=== PATIENT | male | born 1945 | race Caucasian/White ===

== ENCOUNTER 2024-06-16 06:47 | Inpatient (IN) | payer OTHER, SELFPAY ==
[2024-06-13 10:27] VITALS: BMI 23.0
[2024-06-13 10:49] LABS: % Basophils 0.2 % (0-2); % Eosinophils 0.2 % (0-6); % Immature Granulocytes 0.9 % (0-0.5); % Monocytes 7.3 % (1.7-9.3); % Neutrophils 77.4 % (42.2-75.2); Absolute Immature Granulocytes 0.1 10^3/uL (0-0.05); Absolute Lymphocytes 1.2 10^3/uL (1.2-3.4); Absolute Monocytes 0.6 10^3/uL (0.1-0.6); Absolute Neutrophils 6.7 10^3/uL (1.4-6.5); Hematocrit 53.7 % (39.0-52.0); Hemoglobin 18.3 g/dL (13.0-18.0); Mean Corp Hgb Conc. 34.1 g/dL (33.0-37.0); Mean Corpuscular Hgb 33.2 pg (27.0-31.0); Mean Corpuscular Volume 97.5 fL (80.0-94.0); Mean Platelet Volume 9.1 fL (7.4-10.4); Nucleated Red Blood Cells % 0 % (-); Platelet Count 218 10^3/uL (130-400); Red Blood Cell Count 5.51 10^6/uL (4.70-6.10); Red Cell Dist. Width 13.7 % (11.5-14.5); White Blood Cell Count 8.6 10^3/uL (4.8-10.8)
[2024-06-13 10:54] LABS: INR 0.93; PT 12.8 Sec (11.4-14.6)
[2024-06-13 10:55] LABS: APTT 27.3 Sec (23.4-35.0)
[2024-06-13 11:03] LABS: Blood Urea Nitrogen 41 mg/dl (9-20); Calcium 10.2 mg/dl (8.4-10.2); Carbon Dioxide 28 mmol/L (22-30); Chloride 101 mmol/L (98-107); Estimated Creatinine Clearance 45 ml/min; Glucose 114 mg/dl (70-99); Potassium 4.4 mmol/L (3.5-5.1); Sodium 136 mmol/L (135-145); eGFR 56.23
[2024-06-16] VITALS (17 sets, daily range): BP systolic 117–160; BP diastolic 60–79; PULSE 72; BMI 23.6
[2024-06-16] MEDS: PERIDEX 0.12% ORAL RINSE 15 ML PO (07:18)
[2024-06-16] MEDS: BACTROBAN NASAL 1 GRAM NASAL (07:18)
[2024-06-16] MEDS: NSS 500 IV (07:19)
--- NOTE | 2024-06-16 08:38 | W.SUR.PREOP ---
Pre-Operative Surgical Note
-
I have examined this patient prior to the performance of the scheduled procedure.
The patient's condition is unchanged from the time of the current History and
Physical and the patient is able to undergo the scheduled procedure.
[2024-06-16 09:43] LABS: ACT-LR - POC 295 Seconds (116-155)
[2024-06-16 10:38] LABS: ACT-LR - POC 218 Seconds (116-155)
--- NOTE | 2024-06-16 11:15 | W.IMMPOSTOP ---
Surgical Immed Post Op Note
-
Primary Surgeon: Ena
Assisting Surgeon: Tonia
Pre-op Diagnosis: L carotid stenosis
Post-op Diagnosis: L carotid stenosis
Procedure Performed: L CEA
Anesthesia Type: General
Specimen / Cultures: None
Estimated Blood Loss: 5 cc
Complications: None
Operative Findings: Plaque found at carotid bifurcation. L CEA performed.
[2024-06-16] MEDS: CARDENE 25 IV (11:45)
[2024-06-16 12:07] LABS: Hematocrit 51.2 % (39.0-52.0); Hemoglobin 17.3 g/dL (13.0-18.0); Mean Corp Hgb Conc. 33.8 g/dL (33.0-37.0); Mean Corpuscular Hgb 33.5 pg (27.0-31.0); Mean Platelet Volume 8.9 fL (7.4-10.4); Platelet Count 193 10^3/uL (130-400); Red Blood Cell Count 5.17 10^6/uL (4.70-6.10); Red Cell Dist. Width 13.8 % (11.5-14.5); White Blood Cell Count 13.3 10^3/uL (4.8-10.8)
[2024-06-16] MEDS: SUBLIMAZE 50 MCG IV ×2 (12:10→12:24)
--- NOTE | 2024-06-16 12:15 | OR.RPT ---
Operative Report
Operative Report
Date of Operation: 06/16/2024
Pre Op Diagnosis: Heavily calcified high-grade stenosis left internal carotid artery
Post Op Diagnosis: Heavily calcified high-grade stenosis left internal carotid artery
Procedure: LEFT carotid endarterectomy with patch angioplasty using bovine pericardium
Surgeon: Daniel Sutherland III, MD
Tire Retreader: Ab Randall MD PGY1
Anesthesia: General
Complications: None
History and Indications for Procedure: 79-year-old male with heavily calcified high-grade stenosis of the left internal carotid artery, asymptomatic
Procedure in Detail: Khang Proctor was correctly identified and placed supine on the operating table. After adequate induction of anesthesia the left neck was positioned, prepped and draped in the usual sterile fashion. Preoperative antibiotics were
administered. A timeout procedure was performed with the nursing and anesthesia staff confirming the patients identity as well as the nature and laterality of the procedure.
The carotid bifurcation was marked with ultrasound at the beginning of the case. The incision was planned accordingly. An incision was made along the anterior border of the left sternocleidomastoid muscle. Electrocautery was used to divide the
subcutaneous tissue and platysma. The carotid sheath was entered with sharp dissection. The internal jugular vein was retracted laterally. The vagus nerve was identified and protected throughout the case. The common carotid artery was identified at
the base of this incision and carefully encircled with a vessel loop. The patient was systemically heparinized. The dissection was continued distally towards the carotid bifurcation. The facial vein was skeletonized, ligated and divided between ties
and clips. The proximal external carotid artery was encircled with a vessel loop. The distal internal carotid artery was encircled with a vessel loop at a soft spot on the artery beyond the plaque. The hypoglossal nerve was identified and protected.
The internal vessel loop was secured followed by the common and external. An arteriotomy was made on the distal common carotid artery with an 11-blade. This was extended proximally and distally with Hayes scissors. The arteriotomy was extended
distally through the plaque to an area of normal appearing internal carotid artery. The distal vessel loop was replaced with a short tip hockey-stick type vascular clamp. An endarterectomy was performed with a [place] elevator in the standard
fashion. The proximal extent of the plaque was transected with scissors. The distal end of the plaque in the internal carotid artery feathered very nicely with no distal intimal flap identified. The plaque extending into the external carotid artery
was everted. Once the plaque was fully removed the endarterectomy plane was irrigated with heparinized saline and any loose fronds of tissue were removed. A pre-cut piece of bovine pericardium was sewn in place using a running 6-0 Prolene suture.
Prior to the completion of the patch the common carotid was allowed to forward bleed and the external was allowed to back bleed. The area under the patch was irrigated with heparinized saline to remove any potential thrombus or debris. The
anastomosis was completed.
The external vessel loop was released first, followed by the common and then the internal. There was an excellent pulse in the distal internal carotid artery. An excellent quality Doppler signal in the distal internal carotid artery was also
confirmed. The patch suture line was closely inspected for hemostasis and was achieved. Protamine was administered. Hemostasis was achieved in the wound bed. The wound was irrigated with saline solution.
The wound was then closed in layers. Sterile dressings were applied. The patient awoke from anesthesia with no immediate neuro deficits and was taken to the PACU in stable condition.
Attestation: I was present and responsible for the entire procedure
Signed:
Daniel Sutherland III, MD
[facility]
[phone] (cell)
[2024-06-16 12:25] LABS: Blood Urea Nitrogen 26 mg/dl (9-20); Calcium 8.7 mg/dl (8.4-10.2); Carbon Dioxide 27 mmol/L (22-30); Chloride 103 mmol/L (98-107); Estimated Creatinine Clearance 74 ml/min; Glucose 147 mg/dl (70-99); Potassium 4.6 mmol/L (3.5-5.1); Sodium 134 mmol/L (135-145); eGFR > 60.00
[2024-06-16] MEDS: NSS 1000 IV ×2 (13:01→21:53)
--- NOTE | 2024-06-16 13:25 | PTCARENOTE ---
Received pt from PACU with RNx2, telemetry, oxtgen 2 liters nasal cannula, with right FA#18g protective catheter with ivf as ordered, and Cardene @5mg/hr. No neuro deficits. He is aware that he is to call for a headache, visual changes, difficulty
speaking or inability to move any of his extremities. He verbalized his understanding. He was provided a Stroke packet and assigned videos. Right radial arterial line transduced, calibrated and monitored with all ports patent and secured. Correlated
to cuff. Lungs CTA. Pulse ox 99%. Oxygen removed. +BSx4. Reports last BM yesterday. 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 Red in appearance. Not itchy. Voided 580. Removed underwear on arrival. Hearing aid placed in both ears by patient. Daughter at the bedside,
and both were oriented to the unit and the plan of care. Safe environment maintained.
--- NOTE | 2024-06-16 13:28 | PTCARENOTE ---
PACU left without co-signing handoff
[2024-06-16 13:42] LABS: Troponin I < 0.012 ng/ml
--- NOTE | 2024-06-16 13:46 | SUR.PHASEI ---
patient in pacu post left carotid , awakens to name, initially confused as to name of hospital and year - with subsequent checks - knew both. c/o neck burning pain - medicated with fentanyl - little change in pain #; but patient does sleep. michele
and cuff pressures consistent. Cardene held at 25mcg. At 1228 - 9 beats of ventricular rhythm - slow rate at first and then last 4 beats 120/min. asymptomatic. Dr Orantes and Mac Rodriguez TRAVELER CHANGER notified. Per Mesfin Rodriguez - EKG obtained and them Mag and
troponin added to labs - sent. initial BMP and CBC results were back and Mac Rodriguez and Dr Orantes advised. discharge to [facility]U and hand off at bedside.
--- NOTE | 2024-06-16 14:08 | CON.INTV ---
Consultation
Consultation Request
Date/Time Consultation Requested: 06/16
Date/Time Consultation Performed: 06/16
Reason for Consultation: Critical care
Medical History
-
History of Present Illness:
History obtained from the patient, reviewing outpatient and inpatient medical records. Pleasant 79-year-old male with history of left carotid stenosis, nephrolithiasis, history of atrial fibrillation. Patient underwent left carotid endarterectomy
06/16/2024 without complication. We are asked to help from critical care standpoint
Of note, preadmission, patient denies any shortness of breath, nausea, abdominal pain, diarrhea, falls, fevers. Patient did have an episode of decreased senior it assistant strength in the left hand, along with tingling which lasted a minute. CT imaging at [facility]
Nimisha's at that time showed high-grade calcified stenosis of the left carotid, 60%, started on aspirin at that time
.
PMH: History of nephrolithiasis. History suggests sciatica, history of atrial fibrillation
Past Medical History
Past Medical History: None (See above)
Past Surgical History: None (See above)
Social History
Tobacco: Non-smoker
Alcohol: None
Drug: None
Personal:
Living: With Family (Lives with daughter)
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
Family History
Family History: Other (Negative for blood clots, lung disease)
Allergies / Home Medications
Allergies
Allergy/AdvReac Type Severity Reaction Status Date / Time
No Known Allergies Allergy Unverified 06/12/24 12:06
Home Medications
�Medication �Instructions �Recorded �Confirmed �Last Taken �Type
L-Methylfolate Formula 1 mg PO DAILY 06/12/24 06/16/24 06/15/24 06:00 History
[place] 3 2 cap PO DAILY 06/12/24 06/16/24 06/15/24 06:00 History
Vitamin D3 500 unit PO DAILY 06/12/24 06/16/24 06/15/24 06:00 History
aspirin 81 mg chewable tablet 81 mg PO DAILY 06/12/24 06/16/24 06/15/24 History
0600
donepezil 10 mg tablet 10 mg PO DAILY 06/12/24 06/16/24 06/15/24 06:00 History
tamsulosin 0.4 mg capsule 0.4 mg PO DAILY 06/12/24 06/16/24 06/15/24 06:00 History
Review of Systems
-
All other systems: Negative unless noted
Vitals / Labs / Diagnostic Testing
Vital Signs
Temp Pulse Resp BP Pulse Ox
98 F 70 16 128/60 98
06/16/24 13:00 06/16/24 13:00 06/16/24 13:00 06/16/24 13:00 06/16/24 13:15
Lab Data
06/16/24 11:58
06/16/24 11:58
Diagnostic Testing:
Physical Exam
-
HEENT: Normocephalic, Anicteric and Other (Left carotid incision intact)
Cardiovascular: S1/S2, Irregular Rhythm, Rub (n) and Peripheral Edema (n)
Respiratory: Wheeze (n), Rales (n), Rhonchi (n) and Non-Labored Respirations
GI: Soft, Non Distended and Non Tender
Neurology: Awake, Alert and No Motor Deficits (Cranial nerves grossly intact, moves all extremities)
Skin: Good Color and Other (Left carotid incision intact)
General: Comfortable
Assessment
-
79-year-old male with history of atrial fibrillation, nephrolithiasis, presents with transient left senior it assistant weakness along with tingling, had imaging in [facility] which identified left carotid disease. Patient is status post left carotid
endarterectomy 06/16/2024 for high-grade calcified lesion.
S/p LCEA 06/16/2024
Transient left senior it assistant weakness, tingling
Preadmission
Imaging in [facility] confirmed high-grade calcified left carotid stenosis
History of nephrolithiasis
Chronic sciatica
BPH
History of hernia repair
Pulmonary nodule per chest x-ray
History of pancreatic cyst, pending follow-up abdominal imaging
Questionable history of atrial fibrillation, transient
Plan/recommendations
At this time, patient appears to be comfortable
He is without complaints
Left carotid incision intact, hemodynamic stable
Postoperative report reviewed
Cranial nerves intact, neurological exam nonfocal
EKG normal sinus rhythm
CXR 06/13/2024, no active disease although there is a nodular density in the right midlung zone
Moving forward
Continue with IV fluids
Follow blood pressures, treat to maintain parameters
Presently, patient is without pain, denies headaches, nausea
Outpatient records suggest history of atrial fibrillation, apparently patient was told this about 2 years ago, but with follow-up was told 'nothing to worry about', resolved
May benefit from cardiology follow-up in the future
Aspirin therapy started few weeks ago after presenting with left hand senior it assistant weakness, tingling, resolved
At some point, would recommend follow-up chest x-ray and/or CT imaging to rule out pulmonary nodule on the right
Patient lifelong non-smoker
Awaiting abdominal imaging in the next few weeks for pancreatic cyst
Recommended to consider CT imaging at that time. Daughter aware of recommendations
Reviewed with patient, critical care nursing, daughter at bedside
We will follow
TCCT 31 min
[2024-06-16] MEDS: TYLENOL 650 MG PO (14:11)
[2024-06-16 14:26] LABS: APTT 28.4 Sec (23.4-35.0); PT 13.5 Sec (11.4-14.6)
[2024-06-16 15:36] LABS: Phosphorus 2.7 mg/dl (2.5-4.5)
[2024-06-16] MEDS: CARDENE 200 IV (17:38)
--- NOTE | 2024-06-16 20:00 | PTCARENOTE ---
Received pt via handoff.. No neuro deficits. He is aware that he is to call for a headache, visual changes, difficulty speaking or inability to move any of his extremities. Right radial arterial line transduced, calibrated and monitored with all
ports patent and secured. Correlated to cuff. 95% on room air. Oxygen removed. Hypoactive bowel sounds in all 4Q. 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 Red in appearance. Not itchy. Voided 300. Hearing aid placed in both ears by patient. Call mcrae at bedside.
[2024-06-16] MEDS: HEPARIN 5000 UNITS SC (21:16)
[2024-06-17] VITALS (8 sets, daily range): BP systolic 123–138; BP diastolic 57–73; BMI 23.2
--- NOTE | 2024-06-17 | PTCARENOTE ---
All systems reassessed. Neuro checks remain the same. Ice pack refilled. Call mcrae at bedside.
[2024-06-17] MEDS: CARDENE 200 IV (00:38)
--- NOTE | 2024-06-17 04:00 | PTCARENOTE ---
All systems reassessed, labs drawn and hygiene performed..
[2024-06-17 04:08] LABS: Hematocrit 47.7 % (39.0-52.0); Hemoglobin 16.2 g/dL (13.0-18.0); Mean Corpuscular Hgb 32.8 pg (27.0-31.0); Mean Corpuscular Volume 96.6 fL (80.0-94.0); Mean Platelet Volume 9.3 fL (7.4-10.4); Platelet Count 179 10^3/uL (130-400); Red Blood Cell Count 4.94 10^6/uL (4.70-6.10); Red Cell Dist. Width 13.7 % (11.5-14.5); White Blood Cell Count 16.6 10^3/uL (4.8-10.8)
[2024-06-17 04:19] LABS: INR 1.01; PT 13.6 Sec (11.4-14.6)
[2024-06-17 04:20] LABS: APTT 27.7 Sec (23.4-35.0)
[2024-06-17 04:32] LABS: Blood Urea Nitrogen 19 mg/dl (9-20); Calcium 8.1 mg/dl (8.4-10.2); Carbon Dioxide 28 mmol/L (22-30); Chloride 103 mmol/L (98-107); Estimated Creatinine Clearance 84 ml/min; Glucose 117 mg/dl (70-99); Potassium 3.8 mmol/L (3.5-5.1); Sodium 136 mmol/L (135-145); eGFR > 60.00
--- NOTE | 2024-06-17 07:10 | PTCARENOTE ---
No neuro changes. He is anxious to be discharged due to his being admitted to [facility] [place] overnight. However, he was reminded that he should really take it easy because he is recovering from surgery himself. He verbalized his
understanding. Right FA#18g protective catheter with 0.9NSS@80ml/hr. Cardene @5mg/hr to keep SBP between 100-165mmHg. Right radial arterial line transduced, calibrated and monitored with all ports patent and secured. Lungs Clear but dim in the
bases. On 1 liter nasal cannula for desaturation overnight. Now 97%, placed on RA. +BSx4. Voiding clear yellow urine. He was informed of the plan of care regarding time of discharge and sequence of events of capping IVF, removing arterial line,
getting OOB and ambulating in the peck. He verbalized his understanding.
--- NOTE | 2024-06-17 08:21 | W.PN.VS ---
Addendum entered and electronically signed by Daniel Sutherland III, MD 06/17/24 10:43:
This patient was seen and examined with DASHAWN Deluna. I agree with the history and physical exam as well as the assessment and plan.
Postop day 1 left CEA
Doing well
No complaints
Denies SOB,cough
Neck incision clean/dry/flat/soft
Wean oxygen, chest x-ray this AM
Follow-up EKG this morning
Home meds
Discharge planning
Signed:
Daniel Sutherland III, MD
[facility]
[phone] (vfat)
Original Note:
Today's Communication / Plan
-
Seen and assessed with Dr. Sutherland
Assessment/Plan
-
POD 1 Left CEA
Plan:
-DC A-line
-DC IV fluids
-P.o. meds, wean off Cardene
-Increase diet
-Out of bed/ambulate
-Wean O2 as tolerated, chest x-ray this morning
-Repeat EKG this morning
-Likely DC later today
Subjective Data
-
Date of Service: June 17, 2024
Patient seen at bedside this a.m. with Dr. Sutherland. Patient offers no complaints at this time. No events overnight. Patient on 2 L of O2 for sats in the upper 80s.
Objective Data
-
Vital Signs
Temp Pulse Resp BP Pulse Ox
97.9 F 70 14 125/58 97
06/17/24 08:10 06/17/24 06:00 06/17/24 06:00 06/17/24 06:00 06/17/24 08:10
Intake and Output
06/16/24 06/17/24 06/18/24
06:59 06:59 06:59
Intake Total 2177 /
Output Total 1730 / 2180 450 / 450
Balance 448 / 103 -345 / -345
Intake:
Oral fluids 180 / 180
IV fluids (Total) 1997
Cardene 480 / 505
Nss 1,000 ml @ 80 mls/hr IV . 1368 / 1448 80 / 80
[id number] LEILANI Rx#:[id number]
normosol 150 / 150
Output:
Urine, Voided 1730 / 2180 450 / 450
Lab Results
06/17/24 03:42
06/17/24 03:42
Calcium 8.1 mg/dl (8.4-10.2) L 06/17/24 03:42
Phosphorus 2.7 mg/dl (2.5-4.5) 06/16/24 11:58
Magnesium 2.0 mg/dl (1.6-2.3) 06/16/24 12:56
Physical Exam
-
AAOx3
No tachypnea on 2 L
No tachycardia
Neck site clean, dry, intact, soft, flat
Abdomen soft
Moves all extremities equally
Tongue midline
--- NOTE | 2024-06-17 08:26 | W.PN.INTV ---
Today's Communication / Plan
Recommendations
Out of bed to chair, ambulate
Reviewed importance of follow-up imaging for right lung nodule
Patient is scheduled for abdominal CT for pancreatic cyst in the next month
Recommended CT of the chest images
Pulmonary follow-up information left in chart
Disposition efforts
Assessment
-
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 Patient is status post left carotid
endarterectomy 06/16/2024 for high-grade calcified lesion.
S/p LCEA 06/16/2024
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
Preadmission
Imaging in [facility] confirmed high-grade calcified left carotid stenosis
History of nephrolithiasis
Chronic sciatica
BPH
History of hernia repair
Pulmonary nodule per chest x-ray
History of pancreatic cyst, pending follow-up abdominal imaging
Questionable history of atrial fibrillation, transient
Plan/recommendations
At this time, patient appears to be comfortable
He is without complaints
Left carotid incision intact, hemodynamic stable
Cranial nerves intact, neurological exam nonfocal
Mild rash noted, patient states he is 'red' frequently, this is nothing unusual
Desaturation while sleeping to 87% noted
EKG normal sinus rhythm
CXR 06/13/2024, no active disease although there is a nodular density in the right midlung zone
Moving forward
Continue with I management per vascular surgery
Presently, patient is without pain, denies headaches, nausea
A-line discontinued
Ambulate
Outpatient records suggest history of atrial fibrillation, apparently patient was told this about 2 years ago, but with follow-up was told 'nothing to worry about', resolved
May benefit from cardiology follow-up in the future
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
At some point, would recommend follow-up chest x-ray and/or CT imaging to rule out pulmonary nodule on the right
Patient lifelong non-smoker
Awaiting abdominal imaging in the next few weeks for pancreatic cyst
Recommended to consider CT imaging at that time. Daughter aware of recommendations, aware of the need to follow-up given the possibility of a cancer although low suspicion at this time
Disposition efforts noted
Subjective Dataa
Subjective Data
Date of Service:
Date of Service: June 17, 2024
Subjective:
Patient is without complaints. Denies shortness of breath, chest pain, lightheadedness, dizziness, headaches, vision changes. A-line has been discontinued
Objective Data
Data Reviewed
Vital Signs / I&O / Oxygen:
Vital Signs
Temp Pulse Resp BP Pulse Ox
97.9 F 70 14 125/58 97
06/17/24 08:10 06/17/24 06:00 06/17/24 06:00 06/17/24 06:00 06/17/24 08:10
Intake and Output
06/16/24 06/17/24 06/18/24
06:59 06:59 06:59
Intake Total 2178 / 2283 105 / 105
Output Total 1730 / 2180 450 / 450
Balance 448 / 103 -345 / -345
SaO2 97
Nasal Cannula flow liters per 0
minute
Physical Exam
General: Comfortable and Other (Left carotid incision intact)
HEENT: Normocephalic and Anicteric
Cardiovascular: S1-S2, Regular Rhythm, Murmur (n) and Rub (n)
Respiratory: Wheeze (n), Crackles (n), Rhonchi (n) and Non-Labored Respirations
GI: Soft, Non Distended and Non Tender
Neurology: Awake, Alert and No Motor Deficits (Cranial nerves intact, nonfocal exam)
Skin: Cyanosis (n) and Rash (Mild erythema involving face and upper torso, no warmth)
Labs/Micro/Reports
Lab Data
06/17/24 03:42
06/17/24 03:42
Laboratory Results
06/16/24 06/17/24
13:47 03:42
PT 13.5 13.6
INR 1.00 1.01
APTT 28.4 27.7
[2024-06-17] MEDS: LOW STRENGTH ASPIRIN 81 MG PO (09:00)
[2024-06-17] MEDS: ARICEPT 10 MG PO (09:00)
[2024-06-17] MEDS: VITAMIN D3 (cholecalciferol) 12.5 MCG PO (09:00)
[2024-06-17] MEDS: FLOMAX 0.4 MG PO (09:00)
[2024-06-17] MEDS: HEPARIN 5000 UNITS SC (09:00)
--- NOTE | 2024-06-17 09:15 | PTCARENOTE ---
Right radial arterial line removed, pressure held until hemostasis obtained. Gauze dressing applied, secured with paper tape. He was instructed to not push off any surface bending his wrist. He verbalized his understanding. He tolerated OOB to the
chair. Eating BF.
[2024-06-17] MEDS: TYLENOL 650 MG PO (10:47)
--- NOTE | 2024-06-17 10:52 | PTCARENOTE ---
Pt ambulated in the peck. Covered the entire 3rd floor without difficulty. He denied any dizziness, tingling, SOB.
--- NOTE | 2024-06-17 11:26 | PTCARENOTE ---
Al discharge instruction read aloud. He was able to verbalize the S/S of a stroke and what to do if he exhibits any of the symptoms. He retained a copy of the strok packet provided and RN specifically pointed out the page that lists the S/S of a
stroke with emergency instructions. He was encouraged to cut it out and place on his refrigerator. He was able to verbalized instructions regarding the care of his incision, and to notify MD should the incision show symptoms of worsening swelling,
pain, fever, or oozing.
--- NOTE | 2024-06-17 14:13 | W.DS.TRANS ---
DC Summary - Alumnae Secretary
-
Discharge Instructions:
Discharge Diagnosis/Procedures Left carotid endarterectomy
Diet As tolerated
Activity No strenuous activity
Driving Restrictions Not until seen by your Dr
Bathing Restrictions OK to Shower
Instructions:
Stand-Alone Forms: DC Instr - Vascular OR
Changes to Home Medications: No
Discharge Medications:
DC Medications w/original date entered in [employer]
L-Methylfolate Formula 1 mg PO DAILY Supplement 06/12/24
[place] 3 2 cap PO DAILY Supplement 06/12/24
Vitamin D3 500 unit PO DAILY Supplement 06/12/24
aspirin 81 mg chewable tablet 81 mg PO DAILY Blood Clot Prevention/Tx 06/12/24
donepezil 10 mg tablet 10 mg PO DAILY Neurological Condition 06/12/24
tamsulosin 0.4 mg capsule 0.4 mg PO DAILY Urinary Issue 06/12/24
Home Medication Changes
Pending Results: No
--- NOTE | 2024-06-17 14:15 | W.DCSUMMARY ---
Discharge Summary
Discharge Data
Date of Admission: 06/16/24
Date of Discharge: 06/17/24
-
Pending Results: No
Hospital Course
Attending: Ena
Consultants: Pulmonary medicine
Allergies: NKDA
Procedure with date: 06/16/2024: Left carotid endarterectomy with bovine pericardial patch angioplasty and EEG monitoring
History of present illness: The patient is an 79-year-old male with multiple medical conditions including: carotid stenosis, A-fib and kidney stones. Patient presented on 06/16/2024 for scheduled procedure with Dr. Sutherland. Patient presented at
baseline health with no reports of recent illness or trauma.
Hospital Course: Briefly, the patient underwent scheduled CEA without complications, and recovered in PACU. Following recovery phase one and two patient was transferred to intensive care unit per protocol for continued hemodynamic monitoring.
Marketing Operations Coordinator consulted to aid in medical management from a critical care perspective. POD #1 (06/17/2024) Patient neurologically intact, face symmetrical, and tolerating PO diet. Surgical neck site clean, dry, and intact with suture line well
approximated and soft. No evidence of hematoma. Arterial line and IV fluids discontinued. Patient able to ambulate without difficulty or incident. Patient stable for discharge to home.
Prescriptions and follow up appointment are included in the DC summary earth burner note. All instructions were given to the patient in both written and verbal form and the patient expressed understanding.
Discharge Plan
-
Patient Disposition: Home (Routine Discharge)
Discharge Diagnosis/Procedures: Left carotid endarterectomy
Condition: Good
Diet: As tolerated
Activity: No strenuous activity
Driving Restrictions: Not until seen by your Dr
Bathing Restrictions: OK to Shower
Activity Restrictions/Additional Instructions:
If you experience severe constant headache, weakness to an arm or leg, change in vision, trouble speaking or any stroke-like symptom, call 911 immediately
If you experience swelling, increased bruising, drainage from neck site, or fever, please call the office
Stand Alone Forms: DC Instr - Vascular OR
Referrals:
Tushar Roy MD [Active] -
(Would recommend follow-up with regards to possible nodule in the right lung. Need to rule out posibility of cancer although low suspicion based on imaging (possibly caclified)
Can call our office for follow-up if needed, at discretion of primary physician)
Maryann Farris PA-C [Specified Professional Personl] - 06/30/24 9:30 am (Vascular surgery office follow-up)
Patric Vergara MD [Family Provider] - in two weeks (Please call your Primary care provider to follow up with chest x-ray findings. We have attached that study.)
Prescriptions:
Continued
donepezil 10 mg Tablet
10 mg PO DAILY
tamsulosin 0.4 mg Capsule
0.4 mg PO DAILY
aspirin 81 mg Tablet,Chewable
81 mg PO DAILY
L-Methylfolate Formula
1 mg PO DAILY
[place] 3
2 cap PO DAILY
Vitamin D3
500 unit PO DAILY
Discharge Orders:
Discharge Patient (As Directed); Ordered 06/17/24
Ordered By: Ayana Nicolas
Discharge Date and Time
Discharge Date/Time: 06/17/24 12:34
Print Language: SERBIAN
== END 2024-06-17 12:34 | disposition home or self-care (01) | DRG 39 ==
LOC: ICU 06:47
PROVIDERS: Nurse Practitioner; ADMITTING PHYSICIAN Surgery Vascular Surgery; CONSULT PHYSICIAN Internal Medicine Critical Care Medicine; FAMILY PHYSICIAN Internal Medicine
PROC: 03UL0KZ Supplement Left Internal Carotid Artery with Nonautologous Tissue Substitute, Open Approach (ICD-10-PCS; 2024-06-16)
PROC: 03CL0ZZ Extirpation of Matter from Left Internal Carotid Artery, Open Approach (ICD-10-PCS; 2024-06-16)
DX: I65.22 Occlusion and stenosis of left carotid artery (principal); I48.91 Unspecified atrial fibrillation; M54.30 Sciatica, unspecified side; N20.0 Calculus of kidney; N40.0 Benign prostatic hyperplasia without lower urinary tract symptoms; Z79.82 Long term (current) use of aspirin
CPT/HCPCS: 88304; 88311; 35301; 36415; 71045; 71046; 80048; 83735; 84100; 84484; 85025; 85027; 85610; 85730; 93005

== ENCOUNTER → 2024-07-21 09:22 | Outpatient (REF) | payer OTHER, SELFPAY | LOC: DHSLP 09:22 | PROVIDERS: ATTENDING PHYSICIAN Internal Medicine Critical Care Medicine | DX: G47.33 Obstructive sleep apnea (adult) (pediatric) (principal); R09.02 Hypoxemia | CPT/HCPCS: 95800 ==